=== PATIENT | female | born 1935 | race Caucasian/White ===

== ENCOUNTER 2019-03-21 10:06 | Emergency (ER) | payer MEDICARE, OTHER ==
[~2019-03-21] VITALS: Ht 165.1 cm; Wt 56.8 kg
[~2019-03-21 10:06] MED LIST: BENZ-49; DESL5TAB38 PO; ESOM40CA PO; LEVO50TA67 PO; MAX25Tt PO; MESA400T15 PO; RALO60TA55 PO; SPIIN IH; TELM1TAB14 PO
[2019-03-21] MEDS ORDERED: normal saline 1000ML IV soln IVB ONE (11:15)
[2019-03-21 11:34] LABS: BASOPHILS % (AUTO) 0.3 % (0-1); EOSINOPHILS % (AUTO) 0.3 % (0-6); HEMOGLOBIN 14.7 g/dl (12.0-16.0); LYMPHOCYTES # (AUTO) 0.7 X10'3 (1.1-4.8); LYMPHOCYTES % (AUTO) 6.6 % (21-51); MEAN CORPUSCULAR HEMOGLOBIN 28.9 PG (27.0-31.0); MEAN CORPUSCULAR HGB CONC 33.5 g/dL (33.0-36.5); MEAN CORPUSCULAR VOLUME 86.3 FL (78-98); MEAN PLATELET VOLUME 7.5 FL (7.4-10.4); MONOCYTES # (AUTO) 0.5 X10'3 (0-0.9); MONOCYTES % (AUTO) 5.2 % (2-12); NEUTROPHILS # (AUTO) 8.9 X10'3 (1.8-7.7); NEUTROPHILS % (AUTO) 87.6 % (42-75); PLATELET COUNT 239 X10'3 (140-440); RED BLOOD COUNT 5.11 X10'6 (4.20-5.60); RED CELL DISTRIBUTION WIDTH 14.4 % (11.5-14.5); WHITE BLOOD COUNT 10.2 X10'3 (4.5-11.0)
[2019-03-21 11:47] LABS: ALANINE AMINOTRANSFERASE 16 U/L (12-78); ALBUMIN 4.2 G/DL (3.4-5.0); ALBUMIN/GLOBULIN RATIO 1.2 (1.1-1.5); ALKALINE PHOSPHATASE 99 IU/L (46-116); ANION GAP 11 (8-16); ASPARTATE AMINO TRANSFERASE 17 U/L (10-37); BILIRUBIN,TOTAL 0.8 MG/DL (0.1-1.0); BLOOD UREA NITROGEN 10 MG/DL (7-18); CHLORIDE 101 MMOL/L (99-107); CREATININE 1.11 MG/DL (0.40-0.90); GLUCOSE 113 MG/DL (70-104); POTASSIUM 3.2 MMOL/L (3.5-5.1); SODIUM 142 MMOL/L (135-145); TOTAL CARBON DIOXIDE 30.1 MMOL/L (24-32); TOTAL PROTEIN 7.8 G/DL (6.4-8.2); eGFR 47 ML/MIN
[2019-03-21 11:53] LABS: MAGNESIUM 1.9 MG/DL (1.5-2.4); TROPONIN I < 0.04 NG/ML (0.0-0.05)
[2019-03-21] MEDS ORDERED: labetalol 20mg/4ml (5mg/ml) syringe IV ONE (13:05)
[2019-03-21 14:52] LABS: CLARITY,URINE CLEAR (Clear); COLOR,URINE YELLOW (Yellow); GLUCOSE, URINE NEGATIVE (Neg); KETONES,URINE NEGATIVE (Neg); LEUKOCYTE ESTERASE ,URINE NEGATIVE (Neg); NITRITES, URINE NEGATIVE (Neg); OCCULT BLOOD,URINE TRACE-INTACT (Neg); PROTEIN,URINE 100 mg/dl (Neg); UROBILINOGEN,URINE 0.2 E.U/dL (0.2-1.0)
[2019-03-21 14:55] LABS: UA COLLECTION TYPE VOIDED
[2019-03-21 14:59] LABS: HYALINE CASTS 0-3 /LPF (NEGATIVE); SQUAMOUS EPITHELIAL CELL,UR FEW /LPF (FEW)
[2019-03-21 15:00] LABS: BACTERIA,URINE FEW /HPF (Neg); WBC,URINE 0-4 /HPF (0-4)
--- NOTE | 2019-03-21 15:12 | NUR ---
assisting RN with discharge, Dr Roberts aware of high BP, pt is asymptomatic, plans to follow up with PMD and will take BP med when she gets home, pt said she last took BP med 1-2 days ago
[2019-03-21 15:14] VITALS: BP 194/113
== END 2019-03-21 15:15 | disposition home or self-care (01) ==
LOC: ER 10:07
DX: S52.612A Displaced fracture of left ulna styloid process, initial encounter for closed fracture (principal); R42 Dizziness and giddiness; W01.198A Fall on same level from slipping, tripping and stumbling with subsequent striking against other object, initial encounter; R53.1 Weakness; E86.0 Dehydration; I10 Essential (primary) hypertension; J45.909 Unspecified asthma, uncomplicated; Z98.890 Other specified postprocedural states; Z88.0 Allergy status to penicillin; Z79.899 Other long term (current) drug therapy; Y93.89 Activity, other specified; Y92.89 Other specified places as the place of occurrence of the external cause; M26.69 Other specified disorders of temporomandibular joint
CPT/HCPCS: 29125; 36415; 70450; 71045; 73030; 73110; 80053; 81001; 83735; 84484; 85025; 93005; 96361; 96374; 99284; J7030; J3490

== ENCOUNTER 2019-04-25 15:45 | Outpatient (CLI) | payer MEDICARE, OTHER | END 2019-04-25 16:15 | disposition home or self-care (01) | LOC: ORTHO 15:45 | PROVIDERS: ATTEND Orthopaedic Surgery | DX: S52.692A Other fracture of lower end of left ulna, initial encounter for closed fracture (principal); S52.592A Other fractures of lower end of left radius, initial encounter for closed fracture; M25.732 Osteophyte, left wrist; X58.XXXA Exposure to other specified factors, initial encounter; Y93.89 Activity, other specified; Y92.89 Other specified places as the place of occurrence of the external cause; Y99.8 Other external cause status | CPT/HCPCS: 73110; G0463 ==

== ENCOUNTER 2025-01-07 15:53 | Emergency (ER) | payer MEDICARE, OTHER ==
[~2025-01-07] VITALS: Ht 162.6 cm; Wt 57.9 kg
[~2025-01-07 15:53] MED LIST changes: +BENZ-111; -BENZ-49
[2025-01-07 16:04] VITALS: BP 166/79; PULSE 101; RESP 20; TEMP 97.8; O2SAT 93
--- NOTE | 2025-01-07 17:22 | RADIOLOGY REPORT ---
CHEST RADIOGRAPH Indication: [facility] Technique: DI CHEST,TWO VIEWS Comparison: None FINDINGS: The cardiac silhouette is demonstrating prominence of the aortic arch. Aortic atherosclerotic disease. The lungs demonstrate right lower lobe airspace opacification.. The pulmonary vasculature is unremarkable. There is no pleural effusion. There is no pneumothorax. Median sternotomy wires. Thoracic l evocurvature. IMPRESSION: Right lower lobe airspace opacification. Follow-up to resolution. Prominent/enlargement aortic arch. Recommend CT angiogram chest to evaluate.
== END 2025-01-07 22:36 | disposition left against medical advice (07) ==
LOC: ER 15:54
DX: R05.9 Cough, unspecified (principal); R68.89 Other general symptoms and signs; Z53.21 Procedure and treatment not carried out due to patient leaving prior to being seen by health care provider
CPT/HCPCS: 71046; 99281